=== PATIENT | female | born 1985 | race Caucasian/White ===

== ENCOUNTER 2016-07-07 11:54 | Emergency (ER) | payer OTHER ==
[~2016-07-07] VITALS: Ht 162.6 cm; Wt 108.6 kg
[~2016-07-07 11:54] MED LIST: ALBUTEROL SULF8.5 GM IH; ASCORBIC ACID500 M3 PO; ATHENOL325 MG PO; BABY ASPIRIN81 M1 PO; BENTYL20 MG PO; CLONAZEPAM1 MG PO; CYCLOBENZAPRINE10 MG PO; CYMBALTA30 MG PO; DEPAKOTE ER500 MG PO; DEPAKOTE125 MG PO; DEPAKOTE250 MG PO; ENDOCET 5-3251 EACH PO; FEOSOL45 MG PO; FERROUS SULFAT325 MG PO; FIORICET,ESG1 TABLET PO; FISH OIL SOFTG1 EACH PO; FLEXERIL10 MG PO; FLORINEF ACETA0.1 MG PO; FLOVENT 44120 INHALA IH; FOLIC ACID; FOLIC ACID0.4 MG PO; FOLIC ACID1 MG PO; FOLVITE1 MG PO; HYDROCODON-ACE1 EAC7 PO; IBUPROFEN800 MG PO; IMITREX6 MG/0.52 SQ; IRON 100 PLUS1 EACH PO; IRON160 M1 PO; IRON325 M1 PO; KEPPRA250 MG PO; KEPPRA750 MG PO; LORAZEPAM1 MG PO; LORTAB 5-325 M1 EACH PO; MECLIZINE HCL25 MG PO; MEDROL DOSEPAK4 MG PO; METAXALONE800 MG PO; METOCLOPRAM5 MG/1 M1 PO; METOCLOPRAMIDE10 MG PO; MONTELUKAST SOD10 MG PO; MOTRIN600 MG PO; MOTRIN800 MG PO; MULTIVITAMIN; MULTIVITAMIN1 EAC2 PO; NAPROSYN500 MG PO; NEURONTIN100 MG PO; NITROFURANTOIN100 M3 PO; NITROFURANTOIN50 MG PO; NORCO 5/3251 TABLET PO; ONDANSETRON HCL4 MG PO; OXYCODONE HCL5 MG PO; PERCOCET 5/31 TABLET PO; PRENATAL TABLE1 EAC3 PO; PRENATAL VITAM1 EAC1 PO; PRENATAL1 EACH PO; PROAIR HFA8.5 GM IH; PROMETHAZINE HC25 M1 PO; PROVERA,CYCRIN10 MG PO; SERTRALINE HCL50 MG PO; SINGULAIR; SINGULAIR10 MG PO; TOPAMAX100 MG PO; TOPAMAX25 MG PO; TOPAMAX50 MG PO; TRAMADOL HCL50 MG PO; TYLENOL EXTRA500 MG PO; WOMEN'S DAILY1 EAC1 PO; ZANTAC150 MG PO; ZOFRAN ODT4 MG PO; ZOFRAN4 MG PO; [UNRECOGNIZED DRUG - OTHER]
[2016-07-07 12:18] LABS: EOSINOPHIL (%) 0.8 % (0-5); EOSINOPHIL COUNT 0.1 K/uL (0-0.3); HEMATOCRIT 38.1 % (36.0-46.0); IMMATURE GRANULOCYTE (%) 0.2 % (0.0-0.7); IMMATURE GRANULOCYTE COUNT 0.1 K/uL; LYMPHOCYTE COUNT 2.1 K/uL (1.0-2.8); MCH 28.7 PG (29.0-34.0); MCHC 34.4 G/DL (30.0-36.0); MCV 83.4 FL (83-99); MEAN PLAT.VOLUME 10.5 uM^3 (9.5-12.4); MONOCYTE (%) 6.4 % (3-12); MONOCYTE COUNT 0.4 K/uL (0-0.8); NEUTROPHIL (%) 57.1 % (45-76); NEUTROPHIL COUNT 3.4 K/uL (1.8-6.4); PLATELET COUNT 245 K/uL (156-360); RBC DIS.WIDTH-CV 13.7 % (11.8-14.6); RBC DIS.WIDTH-SD 40.9 % (39-53); RED BLOOD COUNT 4.57 M/uL (3.80-5.20)
[2016-07-07 12:36] LABS: CHLORIDE 114 mEq/L (99-109); POTASSIUM 3.8 mEq/L (3.7-5.4); SODIUM 140 mEq/L (136-147)
[2016-07-07 12:38] LABS: GLUCOSE 97 mg/dL (70-99)
[2016-07-07 12:39] LABS: ANION GAP 6 MEQ/L (2-14); QUANTITATIVE HCG < 4.0 MIU/ML
[2016-07-07 12:40] LABS: TOTAL BILIRUBIN 0.3 mg/dL (0.0-1.0)
[2016-07-07 12:42] LABS: ALKALINE PHOSPHATASE 57 IU/L (3-129); GFR ESTIMATE (CALCULATED) > 59 mL/min/
[2016-07-07 12:43] LABS: UREA NITROGEN (BUN) 7 mg/dL (9-23)
[2016-07-07 14:00] VITALS: BP 115/73
== END 2016-07-07 16:03 | disposition home or self-care (01) ==
LOC: EME 11:54
PROVIDERS: Emergency Medicine
DX: M54.5 Low back pain (principal); M54.2 Cervicalgia; R10.9 Unspecified abdominal pain; W10.8XXA Fall (on) (from) other stairs and steps, initial encounter; G40.909 Epilepsy, unspecified, not intractable, without status epilepticus; Z87.820 Personal history of traumatic brain injury; J45.909 Unspecified asthma, uncomplicated; E78.5 Hyperlipidemia, unspecified; I25.2 Old myocardial infarction; K21.9 Gastro-esophageal reflux disease without esophagitis
CPT/HCPCS: 70450; 72125; 72132; 74177; 80053; 84702; 85025; 93005; 99281; 99284; J3010

== ENCOUNTER 2016-09-01 08:45 | Emergency (ER) | payer OTHER ==
[~2016-09-01] VITALS: Ht 162.6 cm; Wt 109.5 kg
[2016-09-01 09:39] LABS: HEMATOCRIT 38.7 % (36.0-46.0); MCH 28.4 PG (29.0-34.0); MCHC 33.3 G/DL (30.0-36.0); MCV 85.1 FL (83-99); MEAN PLAT.VOLUME 10.9 uM^3 (9.5-12.4); PLATELET COUNT 213 K/uL (156-360); RBC DIS.WIDTH-CV 13.8 % (11.8-14.6); RBC DIS.WIDTH-SD 42.9 % (39-53); RED BLOOD COUNT 4.55 M/uL (3.80-5.20); WHITE BLOOD COUNT 5.4 K/uL (4.1-10.2)
[2016-09-01 09:50] LABS: CHLORIDE 113 mEq/L (99-109); POTASSIUM 3.9 mEq/L (3.7-5.4); SODIUM 139 mEq/L (136-147)
[2016-09-01 09:52] LABS: GLUCOSE 105 mg/dL (70-99)
[2016-09-01 09:53] LABS: ANION GAP 7 MEQ/L (2-14)
[2016-09-01 09:54] LABS: TOTAL BILIRUBIN 0.4 mg/dL (0.0-1.0)
[2016-09-01 09:55] LABS: ALKALINE PHOSPHATASE 54 IU/L (3-129)
[2016-09-01 09:56] LABS: GFR ESTIMATE (CALCULATED) > 59 mL/min/
[2016-09-01 09:57] LABS: UREA NITROGEN (BUN) 9 mg/dL (9-23)
[2016-09-01 10:04] LABS: QUANTITATIVE HCG < 4.0 MIU/ML
[2016-09-01 10:04] LABS: ADD MIUA? YES; BILIRUBIN NEGATIVE; BLOOD SMALL; COLOR STRAW ((YELLOW)); GLUCOSE (STRIP) NEGATIVE; KETONES NEGATIVE; LEUKOCYTES NEGATIVE; NITRITE NEGATIVE; PROTEIN (STRIP) NEGATIVE; SPECIFIC GRAVITY 1.008 (1.000-1.030); UROBILINOGEN 0.2 MG/DL (0.2-1.0)
[2016-09-01] MEDS ORDERED: ZOLMITRIPTAN5 MG PO (10:04)
[2016-09-01] MEDS ORDERED: MEDROXYPR AC INJ 150 (10:05)
[2016-09-01] MEDS ORDERED: COLCRYS0.6 MG PO (10:06)
[2016-09-01 10:43] LABS: BACTERIA RARE /HPF; EPITHELIAL CELLS RARE /HPF; MUCUS TRACE /LPF; RED BLOOD CELLS 0-5 /HPF (0-5); UCUL ADDED? NO; WHITE BLOOD CELLS 0-5 /HPF (0-5)
[2016-09-01] MEDS ORDERED: MOBIC15 MG PO (14:20)
[2016-09-01 14:33] VITALS: BP 96/50
== END 2016-09-01 14:34 | disposition home or self-care (01) ==
LOC: EME 08:45
DX: R10.31 Right lower quadrant pain (principal); R73.9 Hyperglycemia, unspecified; E87.8 Other disorders of electrolyte and fluid balance, not elsewhere classified; R11.2 Nausea with vomiting, unspecified; R19.7 Diarrhea, unspecified; J45.909 Unspecified asthma, uncomplicated
CPT/HCPCS: 74177; 80053; 81003; 84702; 85027; 99281; 99285; J7040

== ENCOUNTER 2016-10-21 13:12 | Emergency (ER) | payer OTHER ==
[~2016-10-21] VITALS: Ht 162.6 cm; Wt 109.0 kg
[~2016-10-21 13:12] MED LIST changes: +COLCRYS0.6 MG PO; +MEDROXYPR AC INJ 150; +MOBIC15 MG PO; +ZOLMITRIPTAN5 MG PO
[2016-10-21 13:15] VITALS: BP 131/73
== END 2016-10-21 14:23 | disposition left against medical advice (07) ==
LOC: EME 13:12
DX: R07.9 Chest pain, unspecified (principal); Z53.21 Procedure and treatment not carried out due to patient leaving prior to being seen by health care provider
CPT/HCPCS: 71020; 80048; 84484; 85027; 93005

== ENCOUNTER 2017-03-12 09:16 | Day surgery (SDC) | payer OTHER ==
[~2017-03-12] VITALS: Ht 162.6 cm; Wt 105.7 kg
[~2017-03-12 09:16] MED LIST changes: +ALEVE220 M2 PO; +FLOVENT DISKUS1 DISK IH; +KEPPRA1000 MG PO; -KEPPRA750 MG PO; +LORCET 5-325 M1 EACH PO; +METAMUCIL POWD798 GM PO; +NEXPLANON68 MG SC; +ONCE DAILY1 EACH PO; +PROZAC40 MG PO; +ZANAFLEX4 MG PO
== END 2017-03-12 10:42 | disposition home or self-care (01) ==
LOC: PAIN 09:16 → SDC 09:45 → PAIN 09:45
DX: M47.816 Spondylosis without myelopathy or radiculopathy, lumbar region (principal); J45.909 Unspecified asthma, uncomplicated; R01.1 Cardiac murmur, unspecified; G40.909 Epilepsy, unspecified, not intractable, without status epilepticus; Z79.82 Long term (current) use of aspirin; Z86.718 Personal history of other venous thrombosis and embolism; Z88.0 Allergy status to penicillin; Z88.1 Allergy status to other antibiotic agents; Z88.2 Allergy status to sulfonamides
CPT/HCPCS: J1030; J2250; J3010; S0020

== ENCOUNTER 2017-03-23 12:11 | Day surgery (SDC) | payer OTHER ==
[~2017-03-23] VITALS: Ht 162.6 cm; Wt 107.5 kg
== END 2017-03-23 14:20 | disposition home or self-care (01) ==
LOC: PAIN 12:11 → SDC 13:15 → PAIN 13:15
DX: M47.816 Spondylosis without myelopathy or radiculopathy, lumbar region (principal); M54.5 Low back pain; G89.29 Other chronic pain; M79.1 Myalgia; G62.9 Polyneuropathy, unspecified; M47.812 Spondylosis without myelopathy or radiculopathy, cervical region; J45.909 Unspecified asthma, uncomplicated; F41.8 Other specified anxiety disorders; Z88.0 Allergy status to penicillin; Z88.2 Allergy status to sulfonamides; G40.909 Epilepsy, unspecified, not intractable, without status epilepticus; Z79.891 Long term (current) use of opiate analgesic
CPT/HCPCS: J1030; J2250; J3010; S0020

== ENCOUNTER 2017-05-10 01:19 | Emergency (ER) | payer OTHER ==
[~2017-05-10] VITALS: Ht 162.6 cm; Wt 108.8 kg
[~2017-05-10 01:19] MED LIST changes: +MILLIPRED DP5 M1 PO
[2017-05-10 01:48] LABS: HEMATOCRIT 36.3 % (36.0-46.0); MCH 29.3 PG (29.0-34.0); MCHC 34.4 G/DL (30.0-36.0); MCV 85.2 FL (83-99); MEAN PLAT.VOLUME 10.8 uM^3 (9.5-12.4); PLATELET COUNT 230 K/uL (156-360); RBC DIS.WIDTH-SD 43.6 % (39-53); RED BLOOD COUNT 4.26 M/uL (3.80-5.20); WHITE BLOOD COUNT 7.4 K/uL (4.1-10.2)
[2017-05-10 02:02] LABS: CHLORIDE 111 mEq/L (99-109); POTASSIUM 3.3 mEq/L (3.7-5.4); SODIUM 140 mEq/L (136-147)
[2017-05-10 02:03] LABS: GLUCOSE 121 mg/dL (70-99)
[2017-05-10 02:05] LABS: ANION GAP 8 MEQ/L (2-14)
[2017-05-10 02:07] LABS: GFR ESTIMATE (CALCULATED) > 59 mL/min/
[2017-05-10 02:08] LABS: UREA NITROGEN (BUN) 10 mg/dL (9-23)
[2017-05-10 02:10] LABS: CREATINE KINASE 79 IU/L (1-294); TOTAL CK 79 IU/L (1-294)
[2017-05-10 02:15] LABS: ADD MIUA? YES; BILIRUBIN NEGATIVE; BLOOD MODERATE; COLOR YELLOW ((YELLOW)); GLUCOSE (STRIP) NEGATIVE; KETONES NEGATIVE; LEUKOCYTES NEGATIVE; NITRITE NEGATIVE; PROTEIN (STRIP) NEGATIVE; UROBILINOGEN 0.2 MG/DL (0.2-1.0)
[2017-05-10 02:16] LABS: QUANTITATIVE HCG < 4.0 MIU/ML
[2017-05-10 02:17] LABS: CK-MB 0.5 ng/mL (0.0-4.9)
[2017-05-10 02:20] LABS: BACTERIA NONE SEEN /HPF; EPITHELIAL CELLS 1+ /HPF; MUCUS TRACE /LPF; RED BLOOD CELLS 0-5 /HPF (0-5); UCUL ADDED? NO; WHITE BLOOD CELLS 0-5 /HPF (0-5)
[2017-05-10 03:28] VITALS: BP 100/54
== END 2017-05-10 03:28 | disposition home or self-care (01) ==
LOC: EME → EDBD 01:19 → EME 03:28
PROVIDERS: Emergency Medicine
DX: G40.909 Epilepsy, unspecified, not intractable, without status epilepticus (principal); T42.6X6A Underdosing of other antiepileptic and sedative-hypnotic drugs, initial encounter; Z87.820 Personal history of traumatic brain injury; E87.6 Hypokalemia; J45.909 Unspecified asthma, uncomplicated; E78.5 Hyperlipidemia, unspecified; I25.2 Old myocardial infarction; K21.9 Gastro-esophageal reflux disease without esophagitis; R01.1 Cardiac murmur, unspecified; G89.29 Other chronic pain; M54.9 Dorsalgia, unspecified; Z90.49 Acquired absence of other specified parts of digestive tract; Z88.0 Allergy status to penicillin; Z88.2 Allergy status to sulfonamides; Z88.5 Allergy status to narcotic agent; Z91.02 Food additives allergy status
CPT/HCPCS: 80048; 81003; 82550; 82553; 84702; 85027; 93005; 99281; 99284

== ENCOUNTER 2017-06-16 07:06 | Day surgery (SDC) | payer OTHER ==
[~2017-06-16] VITALS: Ht 162.6 cm; Wt 107.5 kg
[2017-06-16 08:10] VITALS: BP 124/71
[2017-06-16 10:15] VITALS: BP 129/69
[2017-06-16 10:52] VITALS: BP 128/69
== END 2017-06-16 10:54 | disposition home or self-care (01) ==
LOC: SDC 07:06
DX: N84.1 Polyp of cervix uteri (principal); N84.0 Polyp of corpus uteri; J45.909 Unspecified asthma, uncomplicated; I25.2 Old myocardial infarction; G40.909 Epilepsy, unspecified, not intractable, without status epilepticus; Z79.82 Long term (current) use of aspirin; Z88.0 Allergy status to penicillin; Z88.2 Allergy status to sulfonamides
CPT/HCPCS: 88305; J1100; J1885; J2250; J2405; J3010

== ENCOUNTER 2017-08-24 12:32 | Emergency (ER) | payer OTHER ==
[~2017-08-24] VITALS: Ht 162.6 cm; Wt 112.2 kg
[2017-08-24 16:09] VITALS: BP 127/78
== END 2017-08-24 16:10 | disposition home or self-care (01) ==
LOC: EME 12:32
DX: R51 Headache (principal); J45.909 Unspecified asthma, uncomplicated; E78.5 Hyperlipidemia, unspecified; G43.909 Migraine, unspecified, not intractable, without status migrainosus; I25.2 Old myocardial infarction; K21.9 Gastro-esophageal reflux disease without esophagitis; D64.9 Anemia, unspecified; G40.909 Epilepsy, unspecified, not intractable, without status epilepticus; Z87.820 Personal history of traumatic brain injury; K58.9 Irritable bowel syndrome, unspecified; Z88.0 Allergy status to penicillin; Z88.2 Allergy status to sulfonamides; Z88.5 Allergy status to narcotic agent
CPT/HCPCS: 99281; 99284; J1100; J1885

== ENCOUNTER 2017-11-04 21:53 | Observation (INO) | payer OTHER ==
[~2017-11-04] VITALS: Ht 162.6 cm; Wt 110.1 kg
[2017-11-04 23:05] LABS: BASOPHIL (%) 0.3 % (0-1); EOSINOPHIL (%) 0.6 % (0-5); EOSINOPHIL COUNT 0.1 K/uL (0-0.3); HEMATOCRIT 38.7 % (36.0-46.0); HEMOGLOBIN 13.1 G/DL (11.9-15.5); IMMATURE GRANULOCYTE (%) 0.4 % (0.0-0.7); LYMPHOCYTE (%) 20.5 % (15-42); MCHC 33.9 G/DL (30.0-36.0); MCV 85.8 FL (83-99); MONOCYTE (%) 5.8 % (3-12); MONOCYTE COUNT 0.6 K/uL (0-0.8); NEUTROPHIL (%) 72.4 % (45-76); NEUTROPHIL COUNT 7.1 K/uL (1.8-6.4); PLATELET COUNT 235 K/uL (156-360); RBC DIS.WIDTH-CV 13.4 % (11.8-14.6); RED BLOOD COUNT 4.51 M/uL (3.80-5.20); WHITE BLOOD COUNT 9.8 K/uL (4.1-10.2)
[2017-11-04 23:14] LABS: ALBUMIN 4.3 g/dL (3.2-4.8)
[2017-11-04 23:15] LABS: CHLORIDE 108 mEq/L (99-109); POTASSIUM 3.8 mEq/L (3.7-5.4); SODIUM 144 mEq/L (136-147)
[2017-11-04 23:17] LABS: GLUCOSE 82 mg/dL (70-99); TOTAL PROTEIN 7.3 g/dL (6.4-8.3)
[2017-11-04 23:19] LABS: TOTAL BILIRUBIN 0.4 mg/dL (0.0-1.0)
[2017-11-04 23:20] LABS: ALKALINE PHOSPHATASE 82 IU/L (3-129)
[2017-11-04 23:21] LABS: CREATININE 0.8 mg/dL (0.6-1.3); GFR ESTIMATE (CALCULATED) > 59 mL/min/
[2017-11-04 23:22] LABS: AST (GOT) 13 IU/L (2-34); UREA NITROGEN (BUN) 10 mg/dL (9-23)
[2017-11-04 23:24] LABS: ALT (GPT) 13 IU/L (3-49); LIPASE 16 U/L (1.0-51.0)
[2017-11-05 00:21] LABS: APPEARANCE CLEAR ((CLEAR)); BILIRUBIN NEGATIVE; BLOOD SMALL; COLOR YELLOW ((YELLOW)); GLUCOSE (STRIP) NEGATIVE; KETONES NEGATIVE; LEUKOCYTES NEGATIVE; NITRITE NEGATIVE; PROTEIN (STRIP) NEGATIVE; SPECIFIC GRAVITY 1.011 (1.000-1.030); UROBILINOGEN 0.2 MG/DL (0.2-1.0)
[2017-11-05 00:24] LABS: BACTERIA NONE SEEN /HPF; EPITHELIAL CELLS 1+ /HPF; MUCUS TRACE /LPF; RED BLOOD CELLS 0-5 /HPF (0-5); UCUL ADDED? NO; WHITE BLOOD CELLS 0-5 /HPF (0-5)
[2017-11-05 05:06] VITALS: BP 120/59
[2017-11-05] MEDS ORDERED: MAXALT5 MG PO (11:12)
[2017-11-05 11:44] VITALS: BP 114/57
[2017-11-05 15:28] VITALS: BP 113/58
[2017-11-05 19:09] VITALS: BP 98/53
[2017-11-05 23:10] VITALS: BP 124/71
[2017-11-06 03:12] VITALS: BP 107/58
[2017-11-06 08:05] VITALS: BP 113/61
[2017-11-06 08:53] VITALS: BP 133/71
[2017-11-06] MEDS ORDERED: NORCO 5/3251 TABLET PO (09:36)
== END 2017-11-06 10:25 | disposition home or self-care (01) ==
LOC: EME 21:53 → EDOF 11-05 01:46 → 2EAST 11-05 01:46 → ENRESERV 11-05 03:21 → 2EAST 11-05 05:04 → ENRESERV 11-05 14:13 → 2EAST 11-06 10:25
PROVIDERS: Emergency Medicine
DX: K35.80 Unspecified acute appendicitis (principal); K66.0 Peritoneal adhesions (postprocedural) (postinfection); G40.909 Epilepsy, unspecified, not intractable, without status epilepticus; Z87.820 Personal history of traumatic brain injury; J45.909 Unspecified asthma, uncomplicated; G43.909 Migraine, unspecified, not intractable, without status migrainosus; E78.5 Hyperlipidemia, unspecified; R01.1 Cardiac murmur, unspecified; I95.9 Hypotension, unspecified; K21.9 Gastro-esophageal reflux disease without esophagitis; K58.9 Irritable bowel syndrome, unspecified; D50.9 Iron deficiency anemia, unspecified; G89.29 Other chronic pain; M54.9 Dorsalgia, unspecified; Z90.49 Acquired absence of other specified parts of digestive tract; Z88.0 Allergy status to penicillin; Z88.2 Allergy status to sulfonamides; Z88.5 Allergy status to narcotic agent; Z88.1 Allergy status to other antibiotic agents; Z91.048 Other nonmedicinal substance allergy status
CPT/HCPCS: 74177; 80053; 81003; 81025; 83605; 83690; 85025; 88304; 94640; 94640 76; 99202; 99281; 99285; G0378; J0131; J0744; J1100; J1650; J1885; J2405; J2550; J2710; J3010; J7030; J7120; J7643; S0030

== ENCOUNTER 2017-11-12 10:52 | Observation (INO) | payer OTHER ==
[~2017-11-12] VITALS: Ht 162.6 cm; Wt 109.0 kg
[~2017-11-12 10:52] MED LIST changes: +MAXALT5 MG PO; -METAMUCIL POWD798 GM PO; +METAMUCIL POWD822 G1 PO
[2017-11-12 11:28] LABS: HEMATOCRIT 37.6 % (36.0-46.0); MCH 29.5 PG (29.0-34.0); MCHC 34.6 G/DL (30.0-36.0); MCV 85.3 FL (83-99); PLATELET COUNT 278 K/uL (156-360); RBC DIS.WIDTH-CV 13.5 % (11.8-14.6); RBC DIS.WIDTH-SD 42.1 % (39-53); RED BLOOD COUNT 4.41 M/uL (3.80-5.20); WHITE BLOOD COUNT 8.4 K/uL (4.1-10.2)
[2017-11-12 11:33] LABS: BILIRUBIN NEGATIVE; BLOOD SMALL; COLOR YELLOW ((YELLOW)); GLUCOSE (STRIP) NEGATIVE; KETONES NEGATIVE; LEUKOCYTES SMALL; NITRITE NEGATIVE; PROTEIN (STRIP) 30; SPECIFIC GRAVITY 1.032 (1.000-1.030); UROBILINOGEN 0.2 MG/DL (0.2-1.0)
[2017-11-12 11:35] LABS: APPEARANCE SL.HAZY ((CLEAR))
[2017-11-12 11:36] LABS: ALBUMIN 4.2 g/dL (3.2-4.8)
[2017-11-12 11:37] LABS: CHLORIDE 107 mEq/L (99-109); POTASSIUM 3.9 mEq/L (3.7-5.4); SODIUM 139 mEq/L (136-147)
[2017-11-12 11:39] LABS: BACTERIA RARE /HPF; EPITHELIAL CELLS 1+ /HPF; MUCUS TRACE /LPF; RED BLOOD CELLS 0-5 /HPF (0-5); UCUL ADDED? NO; WHITE BLOOD CELLS 0-5 /HPF (0-5)
[2017-11-12 11:39] LABS: GLUCOSE 105 mg/dL (70-99); TOTAL PROTEIN 7.4 g/dL (6.4-8.3)
[2017-11-12 11:41] LABS: TOTAL BILIRUBIN 0.4 mg/dL (0.0-1.0)
[2017-11-12 11:42] LABS: ALKALINE PHOSPHATASE 77 IU/L (3-129)
[2017-11-12 11:43] LABS: CREATININE 0.9 mg/dL (0.6-1.3); GFR ESTIMATE (CALCULATED) > 59 mL/min/
[2017-11-12 11:44] LABS: AST (GOT) 15 IU/L (2-34); UREA NITROGEN (BUN) 13 mg/dL (9-23)
[2017-11-12 11:45] LABS: ALT (GPT) 21 IU/L (3-49)
[2017-11-12 11:53] LABS: QUANTITATIVE HCG < 4.0 MIU/ML
[2017-11-12] MEDS ORDERED: TYLENOL REGULA325 MG PO (14:46)
[2017-11-12 15:26] VITALS: BP 120/66
[2017-11-12 19:51] VITALS: BP 117/68
[2017-11-13] VITALS: BP 115/57
[2017-11-13 00:48] VITALS: BP 98/57
[2017-11-13 05:33] LABS: HEMATOCRIT 33.9 % (36.0-46.0); HEMOGLOBIN 11.1 G/DL (11.9-15.5); MCH 28.5 PG (29.0-34.0); MCHC 32.7 G/DL (30.0-36.0); MCV 86.9 FL (83-99); PLATELET COUNT 240 K/uL (156-360); RBC DIS.WIDTH-CV 13.6 % (11.8-14.6); WHITE BLOOD COUNT 5.5 K/uL (4.1-10.2)
[2017-11-13 06:00] LABS: CHLORIDE 112 MEQ/L (99-109); CREATININE 0.7 MG/DL (0.6-1.3); GFR ESTIMATE (CALCULATED) > 59 mL/min/; GLUCOSE 98 mg/dL (70-99); POTASSIUM 3.7 MEQ/L (3.7-5.4); SODIUM 139 MEQ/L (136-147); UREA NITROGEN (BUN) 9 mg/dL (9-23)
[2017-11-13 08:30] VITALS: BP 115/70
[2017-11-13 11:35] VITALS: BP 114/55
[2017-11-13 15:38] VITALS: BP 118/56
[2017-11-13 19:00] VITALS: BP 115/573
[2017-11-14 00:01] VITALS: BP 97/56
[2017-11-14 04:22] VITALS: BP 80/42
[2017-11-14] MEDS ORDERED: CIPRO250 MG PO (10:13)
[2017-11-14] MEDS ORDERED: COLACE100 MG PO (10:13)
[2017-11-14] MEDS ORDERED: FLAGYL500 MG PO (10:13)
[2017-11-14] MEDS ORDERED: NORCO 5/3251 TABLET PO (10:13)
[2017-11-14 10:30] VITALS: BP 88/40
== END 2017-11-14 10:56 | disposition home or self-care (01) ==
LOC: EME 10:52 → 4SOUTH 13:54 → EDOF 13:54 → ENRESERV 13:58 → 4SOUTH 15:04
PROVIDERS: Physician Assistant Medical
DX: G89.18 Other acute postprocedural pain (principal); Z86.19 Personal history of other infectious and parasitic diseases; Z90.49 Acquired absence of other specified parts of digestive tract; I10 Essential (primary) hypertension; I25.2 Old myocardial infarction; E78.5 Hyperlipidemia, unspecified; R01.1 Cardiac murmur, unspecified; J45.909 Unspecified asthma, uncomplicated; Z87.820 Personal history of traumatic brain injury; G43.909 Migraine, unspecified, not intractable, without status migrainosus; G40.909 Epilepsy, unspecified, not intractable, without status epilepticus; K21.9 Gastro-esophageal reflux disease without esophagitis; K58.9 Irritable bowel syndrome, unspecified; D64.9 Anemia, unspecified; R42 Dizziness and giddiness; G89.29 Other chronic pain; Z88.0 Allergy status to penicillin; Z88.2 Allergy status to sulfonamides; Z88.1 Allergy status to other antibiotic agents; Z88.5 Allergy status to narcotic agent; Z91.018 Allergy to other foods
CPT/HCPCS: 74177; 76856; 80048; 80053; 81003; 84702; 85027; 87493; 94760; 99202; 99281; 99285; G0378; J0744; J1885; J3010; J7030; J7040; S0030